=== PATIENT | female | born 1985 | race Caucasian/White ===

== ENCOUNTER → 2020-06-19 15:23 | Outpatient (BNVA) | payer MEDICAID, SELFPAY | PROVIDERS: Family Provider Family Medicine; PCP Nurse Practitioner Family; Visit Provider Internal Medicine Rheumatology | DX: L40.0 Psoriasis vulgaris (principal); R76.8 Other specified abnormal immunological findings in serum; M33.90 Dermatopolymyositis, unspecified, organ involvement unspecified; L40.50 Arthropathic psoriasis, unspecified; Z79.52 Long term (current) use of systemic steroids; Z79.899 Other long term (current) drug therapy | CPT/HCPCS: 80076; 82306; 82550; 82565; 85025; 85651; 86140; 86431; 86480; 86704; 86803; 87340; 99204 ==

== ENCOUNTER 2020-06-26 11:34 | Outpatient (CLI) | payer MEDICAID, SELFPAY ==
--- NOTE | 2020-06-26 11:40 | XR_ITS ---
WS: [id number] LEFT ELBOW: 2 VIEW(S) TECHNIQUE: AP and lateral. HISTORY: inflammatory arthritis COMPARISON: None available. No acute fractures or dislocation. No joint effusion. No soft tissue abnormality. XR/XR elbow LT 2V [id number] IMPRESSION: Normal LEFT elbow.
--- NOTE | 2020-06-26 11:40 | XR_ITS ---
WS: [id number] RIGHT FOOT: 3 VIEW(S) TECHNIQUE: AP, oblique and lateral. HISTORY: inflammatory arthritis COMPARISON: None available. No acute fracture or dislocation. Normal tarsal/metatarsal alignment. Numerous hammertoe deformities. There is marked flexion at the PI P joints of all digits. No soft tissue abnormality or bone destruction. No osteopenia. Small calcaneal spur. XR/XR foot RT min 3V* [id number] IMPRESSION: No inflammatory arthritic changes.
--- NOTE | 2020-06-26 11:40 | XR_ITS ---
WS: [id number] CHEST 2 VIEWS HISTORY: inflammatory arthritis COMPARISON: 03/21/2019 Lungs: Clear with no abnormality. No pleural effusion or pneumothorax. Cardiac size: Normal. Mediastinum/Aorta: Normal mediastinum. Bones: Normal. XR/XR chest 2V* [id number] IMPRESSION: Normal chest.
--- NOTE | 2020-06-26 11:40 | XR_ITS ---
WS: [id number] RIGHT ELBOW: 2 VIEW(S) TECHNIQUE: AP and lateral. HISTORY: inflammatory arthritis COMPARISON: None available. No acute fractures or dislocation. No joint effusion. No soft tissue abnormality. XR/XR elbow RT 2V [id number] IMPRESSION: Normal RIGHT elbow.
--- NOTE | 2020-06-26 11:40 | XR_ITS ---
WS: [id number] LEFT KNEE: 3 VIEW(S) TECHNIQUE: AP, oblique(s) and lateral. HISTORY: inflammatory arthritis COMPARISON: None available. No fracture or dislocation. No joint space narrowing or osteophytes. No joint effusion. No soft tissue abnormality. XR/XR knee LT 3V* [id number] IMPRESSION: Normal LEFT knee.
--- NOTE | 2020-06-26 11:40 | XR_ITS ---
WS: [id number] RIGHT KNEE: 3 VIEW(S) TECHNIQUE: AP, oblique(s) and lateral. HISTORY: inflammatory arthritis COMPARISON: None available. No fracture or dislocation. No joint space narrowing or osteophytes. No joint effusion. No soft tissue abnormality. XR/XR knee RT 3V* [id number] IMPRESSION: Normal RIGHT knee.
--- NOTE | 2020-06-26 11:40 | XR_ITS ---
WS: [id number] LEFT FOOT: 3 VIEW(S) TECHNIQUE: AP, oblique and lateral. HISTORY: inflammatory arthritis COMPARISON: None available. No acute fracture or dislocation. Normal tarsal/metatarsal alignment. Marked flexion involving the IP joints. Calcaneal spur. No soft tissue abnormality or bone destruction. XR/XR foot LT min 3V* [id number] IMPRESSION: Normal LEFT foot.
--- NOTE | 2020-06-26 11:40 | XR_ITS ---
WS: [id number] LEFT HAND: 3 VIEW(S) TECHNIQUE: PA, oblique and lateral. HISTORY: inflammatory arthritis COMPARISON: None available. No acute fracture or dislocation. No soft tissue or bone abnormality. Small chronic avulsion from the ulnar styloid. Mild narrowing of the distal radial ulnar joint. XR/XR hand LT min 3V* [id number] IMPRESSION: No erosions or inflammatory changes.
--- NOTE | 2020-06-26 11:40 | XR_ITS ---
WS: [id number] RIGHT HAND: 3 VIEW(S) TECHNIQUE: PA, oblique and lateral. HISTORY: inflammatory arthritis COMPARISON: None available. No acute fracture or dislocation. No soft tissue or bone abnormality. XR/XR hand RT min 3V* [id number] IMPRESSION: Normal RIGHT hand.
== END 2020-06-26 11:35 | disposition home or self-care (01) ==
LOC: RADWPI 11:39
PROVIDERS: PCP Nurse Practitioner Family; Visit Provider Internal Medicine Rheumatology
DX: M19.90 Unspecified osteoarthritis, unspecified site (principal)
CPT/HCPCS: 71046; 73070; 73130; 73562; 73630

== ENCOUNTER → 2020-07-26 10:59 | Outpatient (BNVA) | payer MEDICAID, SELFPAY | PROVIDERS: PCP Nurse Practitioner Family; Visit Provider Internal Medicine Rheumatology | DX: L40.0 Psoriasis vulgaris (principal); Z79.899 Other long term (current) drug therapy; L40.50 Arthropathic psoriasis, unspecified; M33.90 Dermatopolymyositis, unspecified, organ involvement unspecified; F17.210 Nicotine dependence, cigarettes, uncomplicated; Z79.52 Long term (current) use of systemic steroids | CPT/HCPCS: 99214 ==

== ENCOUNTER 2021-01-20 10:37 | Outpatient (CLI) | payer MEDICAID, SELFPAY ==
[2021-01-20 11:43] LABS: Magnesium 1.9 mg/dL (1.7-2.3)
[2021-01-20 12:19] LABS: Potassium 4.1 mmol/L (3.5-5.1)
== END 2021-01-20 10:38 | disposition home or self-care (01) ==
PROVIDERS: PCP Nurse Practitioner Family; Visit Provider Internal Medicine Rheumatology
DX: Z79.899 Other long term (current) drug therapy (principal); R25.2 Cramp and spasm
CPT/HCPCS: 36415; 83735; 84132

== ENCOUNTER 2021-05-31 07:56 | Emergency (ER) | payer MEDICAID, SELFPAY ==
--- NOTE | 2021-05-31 08:25 | ED_ITS ---
HPI - Abdominal Pain General: Stated Complaint: Abd pain Time Seen by Provider: 05/31/21 08:21 PFSH ED PFSH: Medical History (Updated 07/26/20 @ 12:32 by Stephan Gudino MD) Heliotrope rash of eyelid High risk medication use Immunization counseling Nephrolithiasis Plaque psoriasis Psoriatic arthritis Surgical History History of appendectomy History of tubal ligation Family History Other Heart disease Denies family history of Rheumatoid arthritis Diabetes Lupus Hypertension Social History (Updated 07/26/20 @ 11:27 by Mervat Zambrano LPN) Smoking and tobacco status: current every day smoker Alcohol intake: current Alcohol intake frequency: holidays/special occasions only History of recent travel: No Discharge Plan Discharge Prescriptions: No Action albuterol sulfate [Ventolin HFA] 90 mcg/actuation HFA aerosol inhaler 1 inh INHALATION QID RF: 0 albuterol sulfate 0.63 mg/3 mL solution for nebulization 0.63 mg INHALATION Q6H RF: 0 prednisone 10 mg tablet 10 mg PO DAILY Qty: 30 RF: 3 Taltz Autoinjector 80 mg/mL auto-injector See Rx Instructions SUBCUT .Q4 weeks Qty: 3 RF: 0 Taltz Autoinjector 80 mg/mL auto-injector 80 mg SUBCUT .Q4 weeks Qty: 1 RF: 2 ondansetron HCl 8 mg tablet 8 mg PO Q8H PRN (Reason: nausea and vomiting) Qty: 30 RF: 2 Coding Level of Care Code ED [employer] for [place]
[2021-05-31 08:30] VITALS: BP 146/102; PULSE 103; RESP 15; TEMP 37.1; O2SAT 97; BMI 37.0
--- NOTE | 2021-05-31 08:35 | PC.NURSE ---
patient expresses concern that she will be mixed up with another patient that was in the waiting room to be seen with the same name as Nicole. I educated the patient that we ask the name and of every patient every time to ensure that proper specimen labeling, charting, procedures and testing were on the right patient at the right time. pt verbalized understanding. Noted that the patient is agitated and arguing spouse at bedside.
[2021-05-31 08:36] VITALS: BP 146/102; PULSE 105; RESP 15; O2SAT 97
--- NOTE | 2021-05-31 08:38 | ED_ITS ---
HPI - Fever General: Chief Complaint: Fever Stated Complaint: Abd pain Time Seen by Provider: 05/31/21 08:21 Source: patient Mode of arrival: ambulatory Limitations: no limitations History of Present Illness: HPI Narrative: Patient reports fevers since May 24 after ventral hernia repair. Patient has had occasional cough. She states she had negative Covid screen yesterday. She denies any abdominal pain. She denies any dysuria. She has had a mild cough. She states she has reflux when she lays flat. She denies any flank pain. Denies any headache or neurological changes. She states she has a history of dermatomyositis, lupus, asthma. She does smoke cigarettes. MD elicited complaint: fever Onset (ago): day(s) (7) Context: recent procedure (Ventral hernia repair with mesh on 624 at [facility]) Exacerbating factors: nothing Relieving factors: nothing Associated symptoms: Reports cough; Deny abdominal pain, flank pain, chills, chest pain, diarrhea, dysuria, extremity pain, headache(s), nausea, rash, short of breath, sore throat or vomiting Treatments prior to arrival fever: none Review of Systems Const: Reports: fever(s); Denies: chills Eyes: Denies: change in vision ENMT: Denies: throat pain Card: Denies: chest pain or palpitations Resp: Reports: non-productive cough; Denies: dyspnea or wheezing GI: Denies: abdominal pain, nausea, vomiting or diarrhea : Denies: flank pain or dysuria Musc: Denies: neck pain, back pain or extremity pain Skin/Breast: Denies: rash or pruritus Neuro: Denies: headache(s) Psych: Denies: anxiety Herrera/Lymph: Denies: enlarged lymph nodes PFSH ED PFSH: Medical History Heliotrope rash of eyelid High risk medication use Immunization counseling Nephrolithiasis Plaque psoriasis Psoriatic arthritis Surgical History History of appendectomy History of tubal ligation Family History Other Heart disease Denies family history of Rheumatoid arthritis Diabetes Lupus Hypertension Social History Smoking and tobacco status: current every day smoker Alcohol intake: current Alcohol intake frequency: holidays/special occasions only History of recent travel: No Physical Exam Const: COMMON NORMALS: no acute distress, patient oriented x3, no limitations and well nourished GENERAL APPEARANCE: cooperative HENMT: COMMON NORMALS: normocephalic and atraumatic HEAD & SCALP: normocephalic and atraumatic FACE & SINUS: normal facial exam Eye: COMMON NORMALS: EOMs intact bilaterally Neck/C-Spine: COMMON NORMALS: full ROM, no lymphadenopathy, supple and no meningeal signs GENERAL: Yes normal visual inspection Lymph: LYMPHATIC: no lymphadenopathy noted Chest: COMMONS NORMALS: normal inspection of the chest and normal palpation of entire chest wall CHEST: No Ecchymosis present and No rash Resp: COMMON NORMALS: normal respiratory effort, No retractions and clear to auscultation bilaterally EFFORT & INSPECTION: No respiratory distress AUSCULTATION: clear to auscultation bilaterally Cardio: COMMON NORMALS: regular rate, regular rhythm and Peripheral pulses 2+ throughout JUGULAR VENOUS DISTENTION: no JVD RATE: regular rate RHYTHM: regular rhythm PERIPHERAL PULSES: Peripheral pulses 2+ throughout GI: COMMON NORMALS: Normal to inspection, nondistended, normoactive bowel s ounds present, Soft to palpation (Obese. Abdomen nontender.) and non-tender INSPECTION: Yes abdominal wall ecchymosis (Minimal ecchymosis to incisional redness to the left lat abd wall) and Yes incision (Wounds healing well) Inspection of incision: healing well PALPATION: Yes Soft to palpation (Obese. Abdomen nontender.) : COMMON NORMALS: Yes no CVA tenderness BLADDER/KIDNEY EXAM: Yes no CVA tenderness Back/Pelvis: COMMON NORMALS: no CVA tenderness Extremity: COMMON NORMALS: normal to inspection, full ROM and capillary refill normal Neuro: COMMON NORMALS: patient oriented x3, CN's II-XII intact bilaterally, no focal motor deficits and no sensory deficits noted MENINGEAL SIGNS: Yes no meningeal signs Psych: COMMON NORMALS: mental status grossly normal and Normal thought process present THOUGHT PROCESS: Normal thought process present Skin: COMMON NORMALS: no rashes or lesions noted and no wounds GENERAL SKIN EXAM: no rashes or lesions noted Course Vital Signs: Vital signs: Vital Signs Temperature 98.7 F 05/31/21 08:30 Pulse Rate 105 H 05/31/21 08:36 Respiratory Rate 15 05/31/21 08:36 Blood Pressure 146/102 05/31/21 08:36 Pulse Oximetry 97 05/31/21 08:36 MDM - Fever MDM Narrative: Medical decision making narrative: 0848: Nurse states that after she obtained the flu swab patient became irate with the nurse and cursed her and left AGAINST MEDICAL ADVICE. Reportedly only the flu swab and urinalysis was collected prior to patient leaving abruptly. Discharge Plan Discharge Patient Disposition: Left Against Medical Advice Prescriptions: No Action albuterol sulfate [Ventolin HFA] 90 mcg/actuation HFA aerosol inhaler 1 inh INHALATION QID RF: 0 albuterol sulfate 0.63 mg/3 mL solution for nebulization 0.63 mg INHALATION Q6H RF: 0 prednisone 10 mg tablet 10 mg PO DAILY Qty: 30 RF: 3 Taltz Autoinjector 80 mg/mL auto-injector See Rx Instructions SUBCUT .Q4 weeks Qty: 3 RF: 0 Taltz Autoinjector 80 mg/mL auto-injector 80 mg SUBCUT .Q4 weeks Qty: 1 RF: 2 ondansetron HCl 8 mg tablet 8 mg PO Q8H PRN (Reason: nausea and vomiting) Qty: 30 RF: 2 Discharge Orders: Discharge ED (Routine); Ordered 05/31/21 Ordered By: Mango Noble Referrals: Avril Aburto FNP [Primary Care Provider] - Coding Level of Care Code ED Operations Superintendent for [employer] Exam Comprehensive
--- NOTE | 2021-05-31 08:50 | PC.NURSE ---
pt provided urine specimen but is angry and making comments under her breath and expressing to that she wants to leave and spouse is verbally telling he no and to quit being mean to everyone. Swabbed patient for flu specimen after educating the patient on the process; pt states did we not do this yesterday; pt was seen at a clinic not at [facility] ED. I educated to patient that the physician wants to repeat some test that may have been performed yesterday to verify those results. After swabbing the patient she became more visibly upset stating that she was leaving or she would leave her ; educated patient that she had the right to leave AMA but I would need her to sign an AMA form. Pt called me a fucking bitch and refused to sign form and left the ED department.
== END 2021-05-31 08:50 | disposition left against medical advice (07) ==
PROVIDERS: Emergency Provider Family Medicine; PCP Nurse Practitioner Family
DX: Z53.21 Procedure and treatment not carried out due to patient leaving prior to being seen by health care provider (principal)
CPT/HCPCS: 99281

== ENCOUNTER → 2021-10-23 11:24 | Outpatient (BNVA) | payer MEDICAID, SELFPAY | PROVIDERS: PCP Nurse Practitioner Family; Visit Provider Internal Medicine Rheumatology | DX: L40.0 Psoriasis vulgaris (principal); L40.50 Arthropathic psoriasis, unspecified; Z79.899 Other long term (current) drug therapy; Z79.52 Long term (current) use of systemic steroids; M33.90 Dermatopolymyositis, unspecified, organ involvement unspecified; Z87.898 Personal history of other specified conditions; Z71.89 Other specified counseling; F17.200 Nicotine dependence, unspecified, uncomplicated | CPT/HCPCS: 99214 ==

== ENCOUNTER → 2022-09-24 09:45 | Outpatient (BNVA) | payer MEDICAID, SELFPAY | PROVIDERS: PCP Nurse Practitioner Family; Visit Provider Internal Medicine Rheumatology | DX: L40.0 Psoriasis vulgaris (principal); L40.50 Arthropathic psoriasis, unspecified; Z79.899 Other long term (current) drug therapy; Z71.89 Other specified counseling; Z87.442 Personal history of urinary calculi; H01.9 Unspecified inflammation of eyelid; Z79.52 Long term (current) use of systemic steroids; I51.89 Other ill-defined heart diseases; K21.9 Gastro-esophageal reflux disease without esophagitis | CPT/HCPCS: 99214 ==

== ENCOUNTER → 2022-10-07 13:36 | Outpatient (BNVA) | payer MEDICAID, SELFPAY | PROVIDERS: Visit Provider Internal Medicine Rheumatology | DX: L40.50 Arthropathic psoriasis, unspecified (principal); L40.0 Psoriasis vulgaris; Z79.899 Other long term (current) drug therapy; Z71.89 Other specified counseling; Z79.52 Long term (current) use of systemic steroids; Z87.442 Personal history of urinary calculi | CPT/HCPCS: 99214 ==

== ENCOUNTER 2022-10-11 17:12 | Outpatient (CLI) | payer MEDICAID, SELFPAY ==
[2022-10-11 17:43] LABS: Basophils # 0.1 10^3/uL (0.0-0.1); Basophils % 0.8 %; Eosinophils # 0.2 10^3/uL (0.0-0.8); Eosinophils % 1.5 %; Hematocrit 46.8 % (37.0-47.0); Hemoglobin 15.9 g/dL (11.5-15.3); Mean Corpuscular Hemoglobin 28.6 pg (28.0-34.0); Mean Corpuscular Volume 84.2 fl (81-99); Mean Platelet Volume 10.3 fL (7.4-10.4); Monocytes # 0.7 10^3/uL (0.2-0.9); Monocytes % 6.6 %; Neutrophils % 61.6 %; Nucleated Red Blood Cells % 0 %; Platelet Count 429 10^3/cmm (130-400); Red Blood Count 5.56 10^6/uL (4.1-5.3); Red Cell Distribution Width 12.9 % (12.1-15.1); White Blood Count 10.4 10^3/uL (4.0-10.0)
[2022-10-11 18:06] LABS: Alanine Aminotransferase 14 U/L (0-33); Albumin Level 4.2 g/dL (3.5-5.2); Alkaline Phosphatase 67 U/L (35-105); Aspartate Amino Transferase 15 U/L (0-32); C Reactive Protein 15.8 mg/L (0.0-4.9); Globulin 3.5 g/dL (1.3-4.6); Glomerular Filtration Rate 93.6 mL/min (90-130); Total Bilirubin 0.2 mg/dL (0.15-1.2); Total Protein 7.7 g/dL (6.6-8.7)
[2022-10-17 17:53] LABS: Myositis EJ AB <11 SI (<11); Myositis JO-1 AB <11 SI (<11); Myositis MDA-5 AB <11 SI (<11); Myositis MI-2 Alpha AB <11 SI (<11); Myositis MI-2 Beta AB <11 SI (<11); Myositis NXP-2AB <11 SI (<11); Myositis OJ AB <11 SI (<11); Myositis PL-12 AB <11 SI (<11); Myositis PL-7 AB <11 SI (<11); Myositis SRP AB <11 SI (<11); Myositis TIF-1y AB <11 SI (<11)
== END 2022-10-11 17:13 | disposition home or self-care (01) ==
LOC: LAB 17:21
PROVIDERS: Visit Provider Internal Medicine Rheumatology
DX: L40.50 Arthropathic psoriasis, unspecified (principal); Z79.899 Other long term (current) drug therapy; L40.0 Psoriasis vulgaris
CPT/HCPCS: 36415; 80076; 82565; 84182; 85025; 86140; 86235

== ENCOUNTER → 2023-01-16 11:54 | Outpatient (BNVA) | payer MEDICAID, SELFPAY | PROVIDERS: Visit Provider Internal Medicine Rheumatology | DX: Z79.899 Other long term (current) drug therapy (principal); L40.50 Arthropathic psoriasis, unspecified; L40.0 Psoriasis vulgaris; M33.90 Dermatopolymyositis, unspecified, organ involvement unspecified; Z71.89 Other specified counseling | CPT/HCPCS: 80076; 82565; 85025; 86036 ==

== ENCOUNTER → 2023-02-06 10:51 | Outpatient (BNVA) | payer MEDICAID, SELFPAY | PROVIDERS: Visit Provider Dermatology | DX: L40.0 Psoriasis vulgaris (principal) | CPT/HCPCS: 80053; 85025; 86480; 86705; 86706; 86709; 86803; 87340; 87806 ==

== ENCOUNTER 2023-02-13 14:21 | Outpatient (CLI) | payer MEDICAID, SELFPAY ==
[2023-02-13 15:47] LABS: Alanine Aminotransferase 19 U/L (0-33); Albumin Level 3.8 g/dL (3.5-5.2); Alkaline Phosphatase 51 U/L (35-105); Anion Gap 13.4 (5-19); Aspartate Amino Transferase 12 U/L (0-32); Blood Urea Nitrogen 12 mg/dL (6-20); Calcium 9.2 mg/dL (8.5-10.5); Carbon Dioxide 26 mmol/L (22-29); Chloride 102 mmol/L (98-107); Glomerular Filtration Rate 93.2 mL/min (90-130); Glucose 94 mg/dL (65-115); Osmolality Calculated 286 mOsm/kg (285-295); Potassium 3.4 mmol/L (3.5-5.1); Sodium 138 mmol/L (136-145); Total Bilirubin 0.2 mg/dL (0.15-1.2); Total Protein 6.8 g/dL (6.6-8.7)
[2023-02-13 16:06] LABS: Hepatitis A Antibody IgM Non-Reactive (Nonreactive); Hepatitis B Core AB, Total Non-Reactive (Nonreactive); Hepatitis B Surface AB 3.5 (11.5-1000); Hepatitis B Surface Antigen Non-Reactive (Nonreactive); Hepatitis C Virus Antibody Non-Reactive (Nonreactive)
[2023-02-13 16:26] LABS: HIV 1 & 2 Antibody Non-Reactive (Non-Reactiv); HIV 1 & 2 Antigen Non-Reactive (Non-Reactiv)
[2023-02-15 14:20] LABS: Quantiferon Mitogen >10.00 IU/mL; Quantiferon Nil 0.02 IU/mL; Quantiferon TB Gold NEGATIVE (NEGATIVE)
== END 2023-02-13 14:22 | disposition home or self-care (01) ==
LOC: LAB 14:25
PROVIDERS: Visit Provider Nurse Practitioner Family
DX: L40.0 Psoriasis vulgaris (principal)
CPT/HCPCS: 36415; 80053; 86480; 86705; 86706; 86709; 86803; 87340; 87806

== ENCOUNTER 2024-09-21 10:09 | Outpatient (CLI) | payer MEDICAID, SELFPAY ==
[2024-09-21 10:29] LABS: Basophils % 0.4 %; Eosinophils # 0.2 10^3/uL (0.0-0.8); Eosinophils % 1.5 %; Hematocrit 42.5 % (36-47); Lymphocytes # 2.2 10^3/uL (0.8-4.8); Lymphocytes % 20.8 %; Mean Corpuscular HGB Conc 33.4 g/dL (30-55); Mean Corpuscular Volume 83.8 fl (85-98); Mean Platelet Volume 10.6 fL (7.4-10.4); Monocytes # 0.5 10^3/uL (0.2-0.9); Monocytes % 4.7 %; Neutrophils % 72.3 %; Nucleated Red Blood Cells % 0 %; Platelet Count 383 10^3/cmm (157-399); Red Blood Count 5.07 10^6/uL (3.85-5.65); Red Cell Distribution Width 13.2 % (12.1-15.1)
[2024-09-21 10:31] LABS: Erythrocyte Sedimentation Rate 18 mm/hr (0-15)
[2024-09-21 10:49] LABS: Alanine Aminotransferase 11 U/L (0-33); Albumin Level 4.1 g/dL (3.5-5.2); Alkaline Phosphatase 54 U/L (35-105); Aspartate Amino Transferase 14 U/L (0-32); C Reactive Protein 9.7 mg/L (0.0-4.9); Globulin 2.9 g/dL (1.3-4.6); Glomerular Filtration Rate 92.7 mL/min (90-130); Total Bilirubin 0.2 mg/dL (0.15-1.2)
[2024-09-21 11:17] LABS: Hepatitis B Core AB, Total Non-Reactive (Nonreactive); Hepatitis B Surface Antigen Non-Reactive (Nonreactive); Hepatitis C Virus Antibody Non-Reactive (Nonreactive)
[2024-09-24 15:58] LABS: Quantiferon Mitogen 7.78 IU/mL; Quantiferon Nil 0.03 IU/mL; Quantiferon Plus TB1 0.01 IU/mL; Quantiferon Plus TB2 0.01 IU/mL; Quantiferon TB Gold NEGATIVE (NEGATIVE)
== END 2024-09-21 10:10 | disposition home or self-care (01) ==
LOC: LAB 10:10
PROVIDERS: Visit Provider Internal Medicine Rheumatology
DX: L40.50 Arthropathic psoriasis, unspecified (principal); L40.0 Psoriasis vulgaris; Z79.899 Other long term (current) drug therapy; Z71.89 Other specified counseling
CPT/HCPCS: 36415; 80076; 82565; 85025; 85651; 86140; 86480; 86704; 86803; 87340

== ENCOUNTER → 2024-09-29 14:00 | Outpatient (BNVA) | payer MEDICAID, SELFPAY | PROVIDERS: Visit Provider Internal Medicine Rheumatology | DX: L40.0 Psoriasis vulgaris (principal); L40.50 Arthropathic psoriasis, unspecified; M33.90 Dermatopolymyositis, unspecified, organ involvement unspecified; Z79.899 Other long term (current) drug therapy; Z71.89 Other specified counseling | CPT/HCPCS: 99214; 99215 ==

== ENCOUNTER → 2025-02-02 13:35 | Outpatient (BNVA) | payer MEDICAID, SELFPAY | PROVIDERS: Visit Provider Internal Medicine Rheumatology | DX: L40.50 Arthropathic psoriasis, unspecified (principal); M33.90 Dermatopolymyositis, unspecified, organ involvement unspecified; L40.0 Psoriasis vulgaris; Z71.89 Other specified counseling | CPT/HCPCS: 99214 ==

== ENCOUNTER → 2025-06-01 12:58 | Outpatient (BNVA) | payer MEDICAID, SELFPAY | PROVIDERS: Visit Provider Internal Medicine Rheumatology | DX: L40.50 Arthropathic psoriasis, unspecified (principal); M33.90 Dermatopolymyositis, unspecified, organ involvement unspecified; L40.0 Psoriasis vulgaris; Z71.89 Other specified counseling; Z79.899 Other long term (current) drug therapy | CPT/HCPCS: 99214 ==

== ENCOUNTER 2025-09-15 09:31 | Emergency (ER) | payer MEDICAID, SELFPAY ==
[2025-09-15] MEDS: ondansetron 2 mg/ML SDV 2 mL 4 MG IVP (09:48)
[2025-09-15] MEDS: morphine 4 mg/mL SDV 1 mL IVP (09:49)
[2025-09-15 09:50] LABS: Hematocrit 48.6 % (36-47); Hemoglobin 16.70 g/dL (11.27-16.99); Mean Corpuscular HGB Conc 34.4 g/dL (30-55); Mean Corpuscular Hemoglobin 27.9 pg (27-33); Mean Corpuscular Volume 81.3 fl (85-98); Nucleated Red Blood Cells % 0 %; Platelet Count 398 10^3/cmm (157-399); Red Blood Count 5.98 10^6/uL (3.85-5.65); White Blood Count 15.26 10^3/uL (3.29-11.43)
[2025-09-15 09:51] VITALS: PULSE 107; RESP 35; O2SAT 98; BMI 42.0
--- NOTE | 2025-09-15 09:56 | ED_ITS ---
HPI - Abdominal Pain 2 General: Chief Complaint: Abdominal Pain Stated Complaint: Upper ABD Pain Time Seen by Provider: 09/15/25 09:42 History of Present Illness: 39-year-old female presents emergency ro om epigastric right upper quadrant abdominal pain has been going on for the last week worse when she eats and improves when she lays on her left side. She previously had an appendectomy she has her gallbladder intact yet. She has had vomiting with this she denies any diaphoresis. Patient extremely anxious on arrival nurse was able to successfully de-escalate her. She denies any hematemesis coffee-ground emesis or melena. No dysuria urgency or frequency or hematuria. Associated Symptoms: Denies chills, dysuria and fever(s) Related Data Home Medications ?Medication ?Instructions ?Recorded ?Confirmed albuterol sulfate 0.63 mg/3 mL 0.63 mg inhalation Q6H 07/26/20 06/01/25 solution for nebulization albuterol sulfate 90 mcg/actuation 1 inh inhalation QI D 07/26/20 06/01/25 aerosol inhaler (Ventolin HFA) ketorolac 10 mg tablet mg PO Q6H 02/02/25 06/01/25 Previous Rx's ?Medication ?Instructions ?Recorded amlodipine 10 mg tablet 10 mg PO DAILY #30 tabs 09/02 ondansetron HCl 8 mg tablet See Rx Instructions .Route 04/21/25 .COMPLEX #30 tabs guselkumab 100 mg/mL subcutaneous 100 mg SUBCUT .Q8wee ks #1 mL 05/05/25 auto-injector (Tremfya) guselkumab 100 mg/mL subcutaneous See Rx Instructions SUBCUT 05/05/25 auto-injector (Tremfya) .COMPLEX #2 mL prednisone 5 mg tablet See Rx Instructions PO .COMP HUSSEIN 06/01/25 #60 tabs amoxicillin 500 mg-potassium 1 tab PO TID #21 tabs clavulanate 125 mg tablet (Augmentin) promethazine 25 mg tablet 25 mg PO Q6H PRN nausea and 09/15/25 vomiting #20 tabs Allergies Allergy/AdvReac Type Severity Reaction Status Date / Time methotrexate AdvReac Severe Nausea Verified 02/02/25 13:53 vomiting dehydrated and in hospital adalimumab (From Humira) AdvReac ADR-Nausea Verified 04/21/25 18:16 Review of Systems 2 Const: Denies: fever(s) or chills Card: Denies: chest pain Resp: Denies: dyspnea GI: Denies: abdominal pain : Denies: dysuria, urinary frequency or urinary urgency Musc: Denies: neck pain or back pain Skin/Breast: Denies: rash PFSH ED 2 PFSH: Medical History Nephrolithiasis Immunization counseling High risk medication use Heliotrope rash of eyelid improved on prednisone Psoriatic arthritis Plaque psoriasis Surgical History Hx of lithotripsy History of appendectomy History of tubal ligation Family History Other Heart disease Denies family history of Rheumatoid arthritis Diabetes Lupus Hypertension Social History Smoking and tobacco/nicotine status: current every day tobacco/nicotine user cigarettes Packs smoked per day: 0.75 Alcohol intake: current Alcohol intake frequency: holidays/special occasions only Physical Exam 2 Const: GENERAL APPEARANCE: cooperative ORIENTATION/CONSCIOUSNESS: Yes awake, Yes oriented to person, Yes oriented to place and Yes oriented to time HENMT: COMMON NORMALS: normocephalic, atraumatic and hearing grossly normal bilaterally HEAD & SCALP: normocephalic and atraumatic Resp: COMMON NORMALS: normal respiratory effort, No retractions, No use of accessory muscles and clear to auscultation bilaterally AUSCULTATION: clear to auscultation bilaterally Cardio: COMMON NORMALS: regular rate, regular rhythm and No murmurs present (Cardio) RATE: regular rate RHYTHM: regular rhythm GI: COMMON NORMALS: Soft to palpation and No hepatosplenomegaly present A USCULTATION: Yes normoactive bowel sounds PALPATION: Yes Soft to palpation, No Tenderness to palpation present (GI), No Guarding due to palpation present (GI) and Yes No hepatosplenomegaly present Extremity: COMMON NORMALS: normal to inspection, capillary refill normal, no clubbing, cyanosis or edema, no calf tenderness and no pedal edema Neuro: SENSORIUM/ORIENTATION: Yes oriented to person, Yes oriented to place and Yes oriented to time Skin: COMMON NORMALS: no rashes or lesions noted GENERAL SKIN EXAM: no rashes or lesions noted Course 2 Vital Signs: Vital signs: Vital Signs Temperature 98.8 F 09/15/25 11:27 Pulse Rate 78 09/15/25 14:07 Respiratory Rate 35 H 09/15/25 09:51 Blood Pressure 108/78 09/15/25 14:07 Pulse Oximetry 98 09/15/25 14:07 Oxygen Delivery Me thod Room Air 09/15/25 09:51 MDM - Abdominal Pain Medical Decision Making Patient has ileitis will start on Augmentin. Clear liquid diet for the next 3 to 4 days and then return advance as tolerated. Will start on antiemetics gave pain medications discharge her home she needs to follow-up with her primary care doctor for repeat evaluation possible CT and further evaluation patient states she is feeling somewhat better after IV fluids. Patient anxious to discharge. Return if she has further problems or pain is not controlled Lab Data 09/15/25 09:36 09/15/25 09:36 Labs/Radiology: Radiology Impressions Abdomen/Pelvis CT 09/15/25 11:30 IMPRESSION: 1. Acute terminal ileitis. There is significant inflammation surrounding the terminal ileum with extension to the cecum. Associated hyperemic lymphadenopathy. Consider inflammatory bowel disease such as Crohn's or ulcerative colitis, infectious etiologies or noninfectious etiologies such as medication related (NSAIDs) or autoimmune disorder. 2. Prior appendectomy. 3. No renal obstruction. 4. Hepatic steatosis. 5. Additional distal colon diverticulosis without acute diverticulitis. Gallbladder Ultrasound 09/15/25 11:30 IMPRESSION: 1. Cholelithiasis. Numerous stones in the gallbladder but no evidence for acute cholecystitis at this time. 2. Completely obscured pancreas. 3. Normal size common bile duct. Laboratory Results WBC 15.26 10^3/uL (3.29-11.43) H 09/15/25 09:36 RBC 5.98 10^6/uL (3.85-5.65) H 09/15/25 09:36 Hgb 16.70 g/dL (11.27-16.99) 09/15/25 09:36 Hct 48.6 % (36-47) H 09/15/25 09:36 MCV 81.3 fl (85-98) L 09/15/25 09:36 MCH 27.9 pg (27-33) 09/15/25 09:36 MCHC 34.4 g/dL (30-55) 09/15/25 09:36 RDW 12.8 % (12.1-15.1) 09/15/25 09:36 Plt Count 398 10^3/cmm (157-399) 09/15/25 09:36 MPV 10.1 fL (7.4-10.4) 09/15/25 09:36 Neut % (Auto) 70.1 % 09/15/25 09:36 Lymph % (Auto) 20.1 % 09/15/25 09:36 [place]leigh % (Auto) 6.7 % 09/15/25 09:36 Eos % (Auto) 1.8 % 09/15/25 09:36 Baso % (Auto) 0.6 % 09/15/25 09:36 Neut # (Auto) 10.71 10^3/uL (1.8-7.7) H 09/15/25 09:36 Lymph # (Auto) 3.1 10^3/uL (0.8-4.8) 09/15/25 09:36 [place] # (Auto) 1.0 10^3/uL (0.2-0.9) H 09/15/25 09:36 Eos # (Auto) 0.3 10^3/uL (0.0-0.8) 09/15/25 09:36 Baso # (Auto) 0.1 10^3/uL (0.0-0.1) 09/15/25 09:36 Nucleated RBC % (auto) 0 % 09/15/25 09:36 Nucleated RBCs # 0.0 /100WBC 09/15/25 09:36 Sodium 139 mmol/L (136-145) 09/15/25 09:36 Potassium 4.1 mmol/L (3.5-5.1) 09/15/25 09:36 Chloride 100 mmol/L (98-107) 09/15/25 09:36 Carbon Dioxide 25 mmol/L (22-29) 09/15/25 09:36 Anion Gap 18.1 (5-19) 09/15/25 09:36 BUN 7 mg/dL (6-20) 09/15/25 09:36 Creatinine 0.7 mg/dL (0.5-0.9) 09/15/25 09:36 GFR Calculation 92.2 mL/min (90-130) 09/15/25 09:36 Glucose 103 mg/dL (65-115) 09/15/25 09:36 Calculated Osmolality 286 mOsm/kg (285-295) 09/15/25 09:36 Calcium 9.9 mg/dL (8.5-10.5) 09/15/25 09:36 Total Bilirubin 0.4 mg/dL (0.15-1.2) 09/15/25 09:36 AST 21 U/L (0-32) 09/15/25 09:36 ALT 18 U/L (0-33) 09/15/25 09:36 Alkaline Phosphatase 82 U/L (35-105) 09/15/25 09:36 Total Protein 7.7 g/dL (6.6-8.7) 09/15/25 09:36 Albumin 4.3 g/dL (3.5-5.2) 09/15/25 09:36 Globulin 3.4 g/dL (1.3-4.6) 09/15/25 09:36 Lipase 14 U/L (13-60) 09/15/25 09:36 Urine Color Dark yellow (Yellow) A 09/15/25:36 Urine Appearance Cloudy (CLEAR) A 09/15/25 09:36 Urine pH 6.5 (5-7) 09/15/25 09:36 Ur Specific [place] 1.021 (1.005-1.030) 09/15/25 09:36 Urine Protein 1+ (Negative) A 09/15/25 09:36 Urine Glucose (UA) Negative (Normal) 09/15/25 09:36 Urine Ketones Trace (Negative) 09/15/25 09:36 Urine Blood Negative (Negative) 09/15/25 09:36 Urine Nitrate Negative (Negative) 09/15/25 09:36 Urine Bilirubin Negative (Negative) 09/15/25 09:36 Urine Urobilinogen 1.0 mg/dL (Negative) 09/15/25 09:36 Ur Leukocyte Esterase 1+ (Negative) A 09/15/25:36 Urine RBC 0-2 /hpf (0-2) 09/15/25 09:36 Urine WBC 11-20 /hpf (0-5) H 09/15/25 09:36 Ur Squamous Epith Cells 21-50 /hpf (0-5) H 09/15/25 09:36 Amorphous Sediment Not Reportable 09/15/25 09:36 Urine Bacteria 3+ /hpf (NONE) H 09/15/25 09:36 Hyaline Casts 4.95 /lpf 09/15/25 09:36 All radiology interpretation(s) finalized by discharge Discharge Plan Discharge Patient Disposition: Home Clinical Impression: Cholelithiasis, Terminal ileitis Condition: Stable Prescriptions: New amoxicillin-pot clavulanate [Augmentin] 500-125 mg tablet 1 tab PO TID Qty: 21 0RF promethazine 25 mg tablet 25 mg PO Q6H PRN (Reason: nausea and vomiting) Qty: 20 0RF No Action albuterol sulfate [Ventolin HFA] 90 mcg/actuation HFA aerosol inhaler 1 inh INHALATION QID albuterol sulfate 0.63 mg/3 mL solution for nebulization 0.63 mg INHALATION Q6H prednisone 5 mg tablet See Rx Instructions PO .COMPLEX Qty: 60 5RF Rx Instructions: takes 10mg daily and will let us know when better then will resume 5mg daily orally; amlodipine 10 mg tablet 10 mg PO DAILY Qty: 30 3RF ketorolac 10 mg tablet PO Q6H ondansetron HCl 8 mg tablet See Rx Instructions .ROUTE .COMPLEX Qty: 30 1RF Dose Instruction: TAKE 1 TABLET BY MOUTH EVERY 8 HOURS NEEDED FOR NAUSEA AND VOMITING Rx Instructions: TAKE 1 TABLET BY MOUTH EVERY 8 HOURS NEEDED FOR NAUSEA AND VOMITING Tremfya 100 mg/mL auto-injector See Rx Instructions SUBCUT .COMPLEX Qty: 2 0RF Rx Instructions: loading dose....100mg SQ inj at week 0 and at week 4 then inj every 8 weeks thereafter SUBCUT; Tremfya 100 mg/mL auto-injector 100 mg SUBCUT .Q2vcpfc Qty: 1 1RF Discharge Orders: Discharge ED (Routine); Ordered 09/15/25 Ordered By: Luis Carlos Contreras Discharge Diet: As Directed Discharge Activity: Increase activity as tolerated Patient Instructions: Biliary Colic (ED), Gallstones (ED), Diet for Stomach Ulcers and Gastritis (ED), Opioid Safety, Pain Management, Patient Portal & Loree Instructions Activity Restrictions/Additional Instructions: Thank you for choosing [facility] for your healthcare needs today. It is very important that you follow up as instructed or that you return to the Emergency Department should you have concerns or if your condition changes or worsens in any way. Emergency department visits are focused on emergent conditions, in some cases you may require further evaluation on an outpatient basis. You were seen in the emergency room with complaints of abdominal pain. Evaluation shows you have an ileitis (inflammation of part of the small bowel). He also have cholelithiasis. Cholelithiasis is causing some biliary colic which is what causes the right upper quadrant and epigastric abdominal pain. Will discharge you home on oral antibiotics Augmentin 1 tablet 3 times a day for 7 days. Will also check for follow-up patient with the general surgery clinic they can evaluate you for whether or not you will need to have your gallbladder out. They can also follow-up eyes any inflammation in your small bowel. If you have worsening symptoms return to the emergency room. Follow the diet recommendations as given at the time of discharge. (Please note that included in your discharge packet is information concerning opioid safety and pain management. This information is given to all patients were discharged from the ER regardless of their discharge diagnosis or the medicines they usually take or are prescribed.) Print Language: Kosovan Coding Level of Care Code ED Small Business Representative for Rusty Kessler
[2025-09-15 10:04] LABS: Glucose Urine UA Negative (Normal); Nitrate Urine Negative (Negative); Specific Gravity, Urine 1.021 (1.005-1.030)
[2025-09-15 10:07] LABS: Add Urine Microscopic? YES; Universal Test for UA Present (0)
--- OUTSIDE RECORDS SUMMARY | 2025-09-15 10:07 | XMS_ITS | Encounter Summary ---
Author Organization [facility] Address [address] [place] [address] Care Team Providers Care Gun Barrel Finisher Name Role Phone Nona Davis MD Primary Care Provider [phone] Encounter Details Date Type Department Care Team (Latest Contact Info) Description 04/17/2000 Outpatient Historical [facility] Family Medicine [place] [address] [facility] [address] [place] [address] Clementine Hood NO ADDRESS ON FILE Health examination of defined subpopulation (Primary Dx) Social History Tobacco Use Types Packs/Day Years Used Date Smoking Tobacco: Never Assessed Comments Unknown Sex and Gender Information Value Date Recorded Sex Assigned at Not on file Legal Sex Female 5:20 AM 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
--- OUTSIDE RECORDS SUMMARY | 2025-09-15 10:07 | XMS_ITS | Encounter Summary ---
Author Organization [id number] Address [address] [place] [address] Care Team Providers Care Trauma Counsellor Name Role Phone John West MD Primary Care Provider [phone] Encounter Details Date Type Department Care Team (Late st Contact Info) Description 06/01/2022 Lab Requisition [facility] Laboratory Services [address] [place] [address] Shaunna Rodrigues, TELEMETRY RN [address] [place] [address] Social History Tobacco Use Types Packs/Day Years Used Date Smoking Tobacco: Some Days Cigarettes Smokeless Tobacco: Never Alcohol Use Standard Drinks/Week Comments No 0 (1 standard drink = 0.6 oz pur e alcohol) Comments No Sex and Gender Information Value Date Recorded Sex Assigned at Not on file Legal Sex Female 3:17 AM HAIRSPRING VIBRATOR Gender Identity Not on file Sexual Orientation Not on file COVID-19 Exposure Response Date Recorded In the last 10 days, have yo u been in contact with someone who was confirmed or suspected to have Coronavirus/COVID-19? No / Unsure 06/01/2022 11:35 AM CDT documented as of this encounter Plan of Treatment Not on file documented as of this encounter Procedures Procedure Name Priority Date/Time Associated Diagnosis Comments CBC WITH DIFFERENTIAL Stat 06/01/2022 12:30 PM CDT C-REACTIVE PROTEIN Stat 06/01/2022 12 :30 PM CDT COMPREHENSIVE METABOLIC PANEL Stat 06/01/2022 12:30 PM CDT documented in this encounter Results * (ABNORMAL) CBC WITH DIFFERENTIAL (06/01/2022 12:30 PM CDT) WBC 9.7 4.5 - 11.0 K/uL 06/01/2022 1:12 PM CDT [facility] RBC 5.63(H) 4.20 - 5.40 M/uL 06/01/2022 1:12 PM [facility] HEMOGLOBIN 15.9 12.0 - 16.0 g/dL 06/01/2022 1:12 PM [facility] HEMATOCRIT 47.6(H) 36.0 - 46.0 % 06/01/2022 1:12 PM [facility] MCV 84.5 84.0 - 103.0 fL 06/01/2022 1:12 PM [facility] MCH 28.2 27.0 - 34.0 pg 06/01/2022 1:12 PM [facility] MCHC 33.4 30.0 - 35.0 g/dL 06/01/2022 1:12 PM [facility] RDW 13.0 11.0 - 14.5 % 06/01/2022 1:12 PM [facility] RDW-STDEV 39.8 37.0 - 54.0 fL 06/01/2022 1:12 PM [facility] PLATELETS 365 140 - 440 K/uL 06/01/2022 1:12 PM [facility] MPV 10.7 8.9 - 12.8 fL 06/01/2022 1:12 PM [facility] NEUTROPHILS 73 42 - 75 % 06/01/2022 1:12 PM [facility] LYMPHOCYTES 19(L) 24 - 44 % 06/01/2022 1:12 PM [facility] MONOCYTES 5 2 - 10 % 06/01/2022 1:12 PM CDT [facility] EOSINOPHILS 2 0 - 7 % 06/01/2022 1:12 PM CDT [facility] BASOPHILS 1 0 - 1 % 06/01/2022 1:12 PM CDT [facility] IMMATURE GRANULOCYTES 1 0 - 2 % 06/01/2022 1:12 PM CDT [facility] NEUTROPHIL ABSOLUTE 7.05 2.00 - 8.00 K/uL 06/01/2022 1:12 PM CDT [facility] LYMPHOCYTE ABSOLUTE 1.84 1.20 - 4.00 K/uL 06/01/2022 1:12 PM CDT [facility] MONOCYTE ABSOLUTE 0.52 0.10 - 0.60 K/uL 06/01/2022 1:12 PM CDT [facility] EOSINOPHIL ABSOLUTE 0.17 0.00 - 0.70 K/uL 06/01/2022 1:12 PM CDT [facility] BASOPHILS ABSOLUTE 0.06 0.00 - 0.20 K/uL 06/01/2022 1:12 PM CDT [facility] IMMATURE GRANULOCYTES ABSOLUTE 0.05 0.00 - 0.10 K/uL 06/01/2022 1:12 PM CDT [facility] Blood Collection / Unknown 06/01/2022 12:30 PM CDT 06/01/2022 1:05 PM CDT Shaunna WEBB HEMATOLOGY ORDERABLES Final Result [facility] CLIA # [id number] [facility] [address] [place], [place] [address] * (ABNORMAL) COMPREHENSIVE METABOLIC PANEL (06/01/2022 12:30 PM CDT) Pathologist [facility] SODIUM 138 136 - 145 mmol/L 06/01/2022 1:39 PM CDT [facility] POTASSIUM 3.5 3.5 - 5.1 mmol/L 06/01/2022 1:39 PM [facility] CHLORIDE 100 98 - 107 mmol/L 06/01/2022 1:39 PM [facility] CO2 26 22 - 29 mmol/L 06/01/2022 1:39 PM [facility] CALCIUM 9.2 8.6 - 10.0 mg/dL 06/01/2022 1:39 PM [facility] BUN 9 6 - 20 mg/dL 06/01/2022 1:39 PM [facility] CREATININE 0.76 0.51 - 0.95 mg/dL 06/01/2022 1:39 PM [facility] GLUCOSE 136(H) 74 - 99 mg/dL 06/01/2022 1:39 PM [facility] TOTAL PROTEIN 7.4 6.4 - 8.3 g/dL 06/01/2022 1:39 PM [facility] ALBUMIN 4.4 3.5 - 5.2 g/dL 06/01/2022 1:39 PM [facility] BILIRUBIN TOTAL 0.4 0.2 - 1.0 mg/dL 06/01/2022 1:39 PM [facility] ALKALINE PHOSPHATASE 70 35 - 104 U/L 06/01/2022 1:39 PM [facility] AST 17 10 - 35 U/L 06/01/2022 1:39 PM [facility] ALT 19 <=35 U/L 06/01/2022 1:39 PM [facility] GFR >60 >=60 mL/min/1.7 3 sq meter 06/01/2022 1:39 PM [facility] Comment:eGFR calculated with 2020 CKD-EPI equation. Vegetarian diet, extremely high or low muscle mass, and may affect results. Cystatin C with Glomerular Filtration Rate is a suitable alternative for these patients. ANION GAP 12 9 - 20 mmol/L 06/01/2022 1:39 PM [facility] Blood Collection / Unknown 06/01/2022 12:30 PM CDT 06/01/2022 1:04 PM CDT Shaunna MARREROP CHEMISTRY ORDERABLES Final Result Performing Organization Address [facility] de Phone Number [facility] CLIA # [id number] [address] [address] * (ABNORMAL) C-REACTIVE PROTEIN (06/01/2022 12:30 PM CDT) CRP 14.4(H) 0.0 - 5.0 mg/L 06/01/2022 1:39 PM CDT [facility] Blood Collection / Unknown 06/01/2022 12:30 PM CDT 06/01/2022 1:04 PM CDT Shaunna MARREROP CHEMISTRY ORDERABLES Final Result Performing Organization Address [facility] de Phone Number [facility] CLIA # [id number] [address] [address] documented in this encounter Visit Diagnoses Not on filedocumented in this encounter Care Teams Trauma Counsellor Relationship Specialty Start Date End Date John West MD [address] [place] [phone] PCP - General Family Practice 12/13/22 documented as of this encounter
--- OUTSIDE RECORDS SUMMARY | 2025-09-15 10:07 | XMS_ITS | Encounter Summary ---
Author Organization [facility] Address [address] [place] [address] Care Team Providers Care Press Tender Star Signal Name Role Phone Nona Davis MD Primary Care Provider Encounter Details Date Type Department Care Team (Latest Contact Info) Description 06/29/2002 Outpatient Historical [facility] Family Medicine [place] [address] [facility] [address] [place] [address] Manuelito Williamson DO NO ADDRESS ON FILE NONINFLAM DIS VAGINA NEC (Primary Dx) Social History Tobacco Use Types Packs/Day Years Used Date Smoking Tobacco: Never Assessed Comments Unknown Sex and Gender Information Value Date Recorded Sex Assigned at Not on file Legal Sex Female 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
--- OUTSIDE RECORDS SUMMARY | 2025-09-15 10:07 | XMS_ITS | Encounter Summary ---
Author Organization [facility] Address [address] [place] [address] Care Team Providers Care Reactor Fueling Supervisor Name Role Phone Nona Davis MD Primary Care Provider [phone] Reason for Visit * Reason Onset Date Comments patient called in 05/21/2021 Patient called earlier today to ask if this location is drive-up for her covid swab. Informed her it is. Patient called around Encounter Details Date Type Department Care Team (Late st Contact Info) Description 05/21/2021 Telephone [facility] - Orthopedic [facility] [address] [place] [address] Jg Negron MD [address] [place] [address] patient called in (Patient called earlier today to ask if this location is drive-up for her covid swab. Informed her it is. 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 No / Unsure 05/22/2021 1:35 PM CDT documented as of this encounter Miscellaneous Notes * Telephone Encounter - Faudree, Lalania - 05/21/2021 9:53 AM CDT Patient called earlier today to ask if this location is drive-up for her covid swab. Informed her it is. Patient called around 9:20am. documented in this encounter Plan of Treatment Not on file documented as of this encounter Visit Diagnoses Not on filedocumented in this encounter Care Teams Reactor Fueling Supervisor Relationship Specialty Start Date End Date Nona Davis MD [address] [place] [address] PCP - General Family Practice 02/20/21 documented as of this encounter
--- OUTSIDE RECORDS SUMMARY | 2025-09-15 10:07 | XMS_ITS | Encounter Summary ---
Author Organization [facility] Address [address] [place] [address] Care Team Providers Care Steel Erecting Pusher Name Role Phone Nona Davis MD Primary Care Provider [phone] Encounter Details Date Type Department Care Team (Latest Contact Info) Description 09/13/2002 Outpatient Historical [facility] Family Medicine [place] [address] [facility] [address] [place] [address] Manuelito Williamson DO NO ADDRESS ON FILE CHEST PAIN NEC (Primary Dx); PANIC DISORDER; SLEEP DISTURBANCE NOS Social History Tobacco Use Types Packs/Day Years Used Date Smoking Tobacco: Never Assessed Comments Unknown Sex and Gender Information Value Date Recorded Sex Assigned at Not on file Legal Sex Female 5:20 AM VIRTUALIZATION ARCHITECT Gender Identity Not on file Sexual Orientation Not on file documented as of this encounter Plan of Treatment Not on file documented as of this encounter Visit Diagnoses Diagnosis Other chest pain- Primary Panic disorder without agoraphobia Sleep disturbance, unspecified documented in this encounter Care Teams Steel Erecting Pusher Relationship Specialty Start Date End Date Nona Davis MD [address] [place] [phone] PCP - General Family Practice 02/20/21 documented as of this encounter
--- OUTSIDE RECORDS SUMMARY | 2025-09-15 10:07 | XMS_ITS | Clinical Summary ---
Author Organization [facility] Address [address] [facility] [place] [address] Care Team Providers Care Air Traffic Control Specialist Name Role Phone Nona Davis MD Primary Care Provider [phone] Allergies Active Allergy Reactions Criticality Noted Date Comments Beta-Blockers (Beta-Adrenergic Blocking Agts) Shortness of Breath/Wheezing High 09/18/2018 Medications predniSONE (DELTASONE) 5 mg tablet TAKE TWO TABLETS BY MOUTH DAILY FOR FOURTEEN DAYS THEN ONE TABLET DAILY FOR FOURTEEN DAYS 0 9 Active clobetasoL (TEMOVATE) 0.05 % Ointment APPLY A THIN LAYER TO PSORIASIS TWICE DAILY 60 Gram 1 0 Active triamcinolone acetonide (KENALOG) 0.025 % Cream APPLY TO RASH ON FACE TWICE DAILY 80 Gram 0 Active ondansetron (Zofran ODT) 4 mg Tablet, Rapid Dissolve Place 1 Tablet (4 mg) under tongue every 8 hours as needed for Nausea. 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 Panic attacks 09/18/2018 Anxiety 09/18/2018 Resolved Problems Problem Noted Date Diagnosed Date Resolved Date Seizure-like activity 09/24/20182020 Family History Medical History Relation Name Comments Heart Disease Father Kidney Disease Father Unknown Maternal Grandfather Diabetes Maternal Grandmother Headaches Mother Hypertension Mother Other Mother mva Stroke Mother Unknown Paternal Grandfather Relation Name Status Comments Daughter Alive Father Maternal Grandfather Maternal Grandmother Mother Paternal Grandfather Social History Tobacco Use Types Packs/Day Years Used Date Smoking Tobacco: Some Days Cigarettes 0.5 23 Smokeless Tobacco: Never Tobacco Cessation:Ready to Q uit: Yes; Counseling Given: Yes Alcohol Use Standard Drinks/Week Comments No 0 (1 standard drink = 0.6 oz pur e alcohol) Comments No Sex and Gender Information Value Date Recorded Sex Assigned at Not on file Legal Sex Female 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 FIRE 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 Gender Identity Not on file Sexual Orientation Not on file Occupation Industry Job Start Date Job End Date Not on file Not on file Not on file Not on file Last Filed Vital Signs Vital Sign Reading Time Taken Comments Blood Pressure 156/98 05/24/2021 12:40 PM CDT Pulse 96 05/24/2021 12:40 PM CDT Temperature 36.1 C (97 F) 05/24/2021 11:39 AM CDT Respiratory Rate 18 05/24/2021 12:40 PM CDT Oxygen Saturation 96% 05/24/2021 12:40 PM CDT Inhaled Oxygen Concentration - - Weight 95.5 kg (210 lb 9.6 oz) 05/24/2021 7:51 A M CDT Height 154.9 cm (5' 1 ) 05/24/2021 7:51 AM CDT Body Mass Index 39.79 05/24/2021 7:51 AM CDT Plan of Treatment Health Maintenance Due Date Last Done Comments DTAP/TDAP/TD VACCINES (1 - Tdap) 2002 HEPATITIS B VACCINES (1 of 3 - 19+ 3-dose series) 11/01 HPV/Cotest (21-29) 2004 HPV VACCINES (1 - 3-dose SCDM series) 2010 CERVICAL CANCER SCREENING 2013 HPV/Cotest (30-65) 2013 PAP SMEAR 2013 Preventative Visit-Managed Medicaid 10/31/202210/30 BREAST CANCER SCREENING 2023 Pre-Diabetes and Diabetes Screening 02/21/202402/20 INFLUENZA VACCINE (#1) 2025 Medical Devices Implanted Type Area Booking Clerk Device Identifier Shelf Expiration Date Model / Serial / Lot Mesh Ventralight St 4x6in [id number] - Sna Implanted:Qty: 1 on 05/24/2021 by Jg Negron MD at [facility] Mesh N/A: Abdomen CR [employer] 12/28/2022 [id number] / NA / [id number] Procedures Procedure Name Priority Date/Time Associated Diagnosis Comments HEMOGLOBIN A1C Routine 02/20/2021 10:34 AM CDT Pre-diabetes from Last 3 Months or Most Recently Relevant to Health Maintenance Results * HEMOGLOBIN A1C (02/20/2021 10:34 AM CDT) HEMOGLOBIN A1C 5.4 See Comment % 02/21/2021 8:12 AM CDT [facility] EST. AVG GLUCOSE, A1C 108 mg/dL 02/21/2021 8:12 AM CDT [facility] Blood Venipuncture / Unknown 02/20/2021 10:34 AM CDT 02/20/2021 6:36 PM CDT Narrative [facility] - 02/21/2021 8:12 AM CDT HGB A1C INTERPRETATION NORMAL: <5.7% PRE-DIABETES: 5.7 - 6.4% DIABETES: 6.5% OR GREATER Falsely low A1C measurements can occur when: 1. Anemia and/or hemolytic anemia is present. 2. Hemoglobin variants present. 3. Renal failure. 4. Transfusion of blood product in the last 120 days. We recommend ordering a fructosamine test([id number]) to more accurately assess glycemic status if any of the above conditions are present. us Nona Davis MD CHEMISTRY ORDERABLES Final Resul t [facility] CLIA# [id number] [address] [place] [address] from Last 3 Months or Most Recently Relevant to Health Maintenance Insurance [facility] [place] Advance Directives For more information, please contact: [phone] * Full Code (Latest Code Status on File) Date Activated Date Inactivated Comments 05/24/2021 8:04 AM 05/24/2021 2:53 PM Care Teams Air Traffic Control Specialist Relationship Specialty Start Date End Date Nona Davis MD [address] [place] [address] PCP - General Family Practice 02/20/21
--- OUTSIDE RECORDS SUMMARY | 2025-09-15 10:07 | XMS_ITS | Encounter Summary ---
Author Organization [facility] Address [address] [place] [address] Care Team Providers Care Lacing Cutter Name Role Phone Nona Davis MD Primary Care Provider [phone] Encounter Details Date Type Department Care Team (Latest Contact Info) Description 06/09/2002 Outpatient Historical [facility] Family Medicine- [place] [address] [place] [address] Bruce Sandoval MD [address] [facility] [address] [place] [address] ABDOMINAL PAIN EPIGASTRIC (Primary Dx); NAUSEA ALONE Social History Tobacco Use Types Packs/Day Years Used Date Smoking Tobacco: Never Assessed Comments Unknown Sex and Gender Information Value Date Recorded Sex Assigned at Not on file Legal Sex Female 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
--- OUTSIDE RECORDS SUMMARY | 2025-09-15 10:07 | XMS_ITS | Encounter Summary ---
Author Organization [facility] Address [address] [place] [address] Care Team Providers Care Journey Lineman Name Role Phone Nona Davis MD Primary Care Provider [phone] Encounter Details Date Type Department Care Team (Latest Contact Info) Description 05/10/2002 Outpatient Historical [facility] [address] [place] [address] Bruce Sandoval MD [address] [address] URIN TRACT INFECTION NOS (Primary Dx) Social History Tobacco Use Types Packs/Day Years Used Date Smoking Tobacco: Never Assessed Comments Unknown Sex and Gender Information Value Date Recorded Sex Assigned at Not on file Legal Sex Female 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
--- OUTSIDE RECORDS SUMMARY | 2025-09-15 10:07 | XMS_ITS | Encounter Summary ---
Author Organization [facility] Address [address] [place] [address] Care Team Providers Care Blind Eyeletter Name Role Phone Nona Davis MD Primary Care Provider [phone] Encounter Details Date Type Department Care Team (Latest Contact Info) Description 01/11/2002 Outpatient Historical [facility] [address] [place] [address] Bruce Sandoval MD [address] [address] ACUTE MAXILLARY SINUSITIS (Primary Dx); URIN TRACT INFECTION NOS Social History Tobacco Use Types Packs/Day Years Used Date Smoking Tobacco: Never Assessed Comments Unknown Sex and Gender Information Value Date Recorded Sex Assigned at Not on file Legal Sex Female 5: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
--- OUTSIDE RECORDS SUMMARY | 2025-09-15 10:07 | XMS_ITS | Encounter Summary ---
Author Organization [facility] Address [address] [place] [address] Care Team Providers Care Marble Carver Name Role Phone Nona Davis MD Primary Care Provider [phone] Encounter Details Date Type Department Care Team (Latest Contact Info) Description 04/21/2002 Outpatient Historical [facility] [address] [place] [address] Manuelito Williamson, NO ADDRESS ON FILE Sprain of neck (Primary Dx); SPASM OF MUSCLE Social History Tobacco Use Types Packs/Day Years Used Date Smoking Tobacco: Never Assessed Comments Unknown Sex and Gender Information Value Date Recorded Sex Assigned at Not on file Legal Sex Female 5: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
--- OUTSIDE RECORDS SUMMARY | 2025-09-15 10:07 | XMS_ITS | Encounter Summary ---
Author Organization [facility] Address [address] [place] [address] Care Team Providers Care Meat Loiner Name Role Phone Nona Davis MD Primary Care Provider [phone] Encounter Details Date Type Department Care Team (Latest Contact Info) Description 05/04/2002 Outpatient Historical [facility] Family Medicine [place] [address] [facility] [address] [place] [address] Manuelito Williamson DO NO ADDRESS ON FILE NAUSEA ALONE (Primary Dx); Scanty menstruation Social History Tobacco Use Types Packs/Day Years Used Date Smoking Tobacco: Never Assessed Comments Unknown Sex and Gender Information Value Date Recorded Sex Assigned at Not on file Legal Sex Female 5:20 AM BASEBALL WINDER Gender Identity Not on file Sexual Orientation Not on file documented as of this encounter Plan of Treatment Not on file documented as of this encounter Visit Diagnoses Diagnosis Nausea alone- Primary Scanty menstruation Scanty or infrequent menstruation documented in this encounter Care Teams Meat Loiner Relationship Specialty Start Date End Date Nona Davis MD [address] [place] [id number] PCP - General Family Practice 02/20/21 documented as of this encounter
--- OUTSIDE RECORDS SUMMARY | 2025-09-15 10:07 | XMS_ITS | Clinical Summary ---
Author Organization [facility] Address [address] [place] [address] Care Team Providers Care Grout Worker Name Role Phone John West MD Primary Care Provider [phone] Allergies Active Allergy Reactions Criticality Noted Date Comments Beta-Blockers (Beta-Adrenergic Blocking Agts) Shortness of Breath/Wheezing High 09/18/2018 Medications ondansetron (ZOFRAN ODT) 4 mg Tablet, Rapid Dissolve Take 1 Tablet (4 mg) by mouth every 8 hours as needed for Nausea/Emesis. Dissolve tablet on top of tongue, then swallow with saliva. 12 Tablet 2 Active predniSONE 10 mg Tablets, Dose Pack Take 10 mg by mouth 2 times daily. Active ixekizumab (TALTZ AUTOINJECTOR SUBCUT) Inject by subcutaneous injection. Active diltiaZEM (CARDIZEM CD) 120 mg Controlled Delivery 24 hour capsuleIndicatio ns:HTN (hypertension), benign Take 1 Capsule (120 mg) by mouth daily. 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 Anxiety 09/18/2018 Hypertension 09/18/2018 Optic neuritis 09/18/2018 Lupus 09/18/2018 Migraines 09/18/2018 Psoriasis 09/18/2018 Panic attacks 09/18/2018 Resolved Problems Problem Noted Date Diagnosed Date Resolved Date Seizure-like activity 09/24/20182020 Family History Medical History Relation Name Comments Asthma Brother 1 Jose Rafael Blanca 2020 respitory condition Respiratory Disease Brother 1 Jose Rafael Blanca No Known Problems Brother 2 Luis Blanca No Known Problems Daughter Heart Disease Father Bonilla blanca Kidney Disease Father Bonilla blanca Heart Failure Maternal Grandfather Diabetes Maternal Grandmother Melva jose Lung Cancer Maternal Grandmother Melva jose Other Maternal Grandmother Melva jose Lung ca ncer Asthma Mother Edilma Jose Headaches Mother Edilma Jose Hypertension Mother Edilma Jose Other Mother Edilma Jose mva Ovarian Cancer Mother Edilma Jose Stroke Mother Edilma Jose Kidney Disease Paternal Grandfather Unknown Paternal Grandfather Heart Failure Paternal Grandmother Relation Name Status Comments Brother 1 Jose Rafael Blanca Brother 2 Luis Blanca Alive Daughter Alive Father Bonilla blanca Maternal Grandfather Maternal Grandmother Melva jose Mother Edilma Jose Paternal Grandfather Paternal Grandmother Social History Tobacco Use Types Packs/Day Years Used Date Smoking Tobacco: Every Day Cigarettes 0.3 20 Smokeless Tobacco: Never Tobacco Cessation:Ready to Q uit: Not Asked; Counseling Given: Not Answered Comments:I stuggle with this addiction and have attempted to quit many times Alcohol Use Standard Drinks/Week Comments Never 0 (1 standard drink = 0.6 oz pur e alcohol) Comments No Sex and Gender Information Value Date Recorded Sex Assigned at Not on file Legal Sex Female 3:17 AM SPANISH MEDICAL INTERPRETER Gender Identity Not on file Sexual Orientation Not on file Last Filed Vital Signs Vital Sign Reading Time Taken Comments Blood Pressure 140/90 09/15/2023 2:33 PM CDT Pulse 102 09/15/2023 2:13 PM CDT Temperature 37.1 C (98.8 F) 08/23/2023 9:30 AM CDT Respiratory Rate 16 08/23/2023 9:30 AM CDT Oxygen Saturation 97% 08/23/2023 9:30 AM CDT Inhaled Oxygen Concentration - - Weight 81.6 kg (180 lb) 09/15/2023 2:13 PM CDT Height 152.4 cm (5') 09/15/2023 2:13 PM CDT Body Mass Index 35.15 09/15/2023 2:13 PM CDT Plan of Treatment Health Maintenance Due Date Last Done Comments DTAP/TDAP/TD VACCINES (1 - Tdap) 2002 HEPATITIS B VACCINES (1 of 3 - 19+ 3-dose series) 2002 HPV VACCINES (1 - 3-dose SCDM series) 2010 Preventative Visit-Managed Medicaid 10/31/202210/30 BREAST CANCER SCREENING 2023 PAP SMEAR 10/30/2024 10/30/2021 INFLUENZA VACCINE (#1) 2025 Pre-Diabetes and Diabetes Screening 12/13/2025 12/13/2022, 08/14/2021, 02/20/2021 CERVICAL CANCER SCREENING 10/30/2026 HPV/Cotest (21-29) 10/30/2026 10/30/2021 HPV/Cotest (30-65) 10/30/2026 10/30/2021 Medical Devices Implanted Type Area Heat Treat Operator Device Identifier Shelf Expiration Date Model / Serial / Lot Mesh Ventralight St 4x6in [id number] - Sna Implanted:Qty: 1 on 05/24/2021 by Jg Negron MD Mesh N/A: Abdomen CR BARD- [employer] 12/28/2022 [id number] / NA / [id number] Procedures Procedure Name Priority Date/Time Associated Diagnosis Comments HEMOGLOBIN A1C Routine 12/13/2022 10:42 AM SPANISH MEDICAL INTERPRETER Hyperglycemia CERV/VAG CYTO SCREEN PAP W/HPV Routine 10/30/2021 12:32 PM SPANISH MEDICAL INTERPRETER Encounter for gynecological examination with abnormal finding Cervical cancer screening from Last 3 Months or Most Recently Relevant to Health Maintenance Results * HEMOGLOBIN A1C (12/13/2022 10:42 AM SPANISH MEDICAL INTERPRETER) HEMOGLOBIN A1C 5.2 <5.7 % of total Hgb [facility] Comment: For the purpose of screening for the presence of diabetes: <5.7% Consistent with the absence of diabetes 5.7-6.4% Consistent with increased risk for diabetes (prediabetes) > or =6.5% Consistent with diabetes This assay result is consistent with a decreased risk of diabetes. Currently, no consensus exists regarding use of hemoglobin A1c for diagnosis of diabetes in children. According to [place] Diabetes Association (ADA) guidelines, hemoglobin A1c <7.0% represents optimal control in non- diabetic patients. Different metrics may apply to specific patient populations. Standards of Medical Care in Diabetes(ADA). ESTIMATED AVERAGE GLUCOSE (MG/DL) 103 mg/dL [facility] ESTIMATED AVERAGE GLUCOSE (MMOL/L) 5.7 mmol/L [facility] Comment: Test Performed at: [facility] [address] [place] [address] Manny Chiu D.O., MPH Blood 12/13/2022 10:4 2 AM SPANISH MEDICAL INTERPRETER 12/13/2022 10:25 PM SPANISH MEDICAL INTERPRETER John West MD CHEMISTRY ORDERABLES Final Re sult [facility] [phone] [facility] [address] [place] [address] * CERV/VAG CYTO SCREEN PAP W/HPV (10/30/2021 12:32 PM SPANISH MEDICAL INTERPRETER) CLINICAL INFORMATION [facility] Comment:Information not prov ided LAST MENSTRUAL PERIOD [facility] Comment:INFORMATION NOT PROV IDED PREV PAP: [facility] Comment:INFORMATION NOT PROV IDED PREV BX: [facility] Comment:INFORMATION NOT PROV IDED SOURCE [facility] Comment:Endocervix ADEQUACY: [facility] Comment: Satisfactory for evaluation. Endocervical/transformation zone component present. Age and/or menstrual status not provided PAP INTERP [facility] Comment:Negative for intraep ithelial lesion or malignancy. COMMENT (PAP TEST) [facility] Comment: This Pap test has been evaluated with computer assisted technology. ULTRASOUND SUPERVISOR: [facility] Comment: MVB, CT(ASCP) CT screening location: [place] [address] [place] [address] SEE NOTE [facility] Comment: EXPLANATORY NOTE: The Pap is a screening test for cervical cancer. It is not a diagnostic test and is subject to false negative and false positive results. It is most reliable when a satisfactory sample, regularly obtained, is submitted with relevant clinical findings and history, and when the Pap result is evaluated along with historic and current clinical information. HPV E6/E7 Not Detected Not Detected [facility] Comment: Methodology: Esthetic Dermatologist-Mediated Amplification This assay detects E6/E7 viral messenger RNA (mRNA) from 14 high-risk HPV types (16,18,31,33,35,39,45,51,52,56,58,59,66,68). The analytical performance characteristics of this assay have been determined by [facility]. The modifications have not been cleared or approved by the FDA. This assay has been validated pursuant to the CLIA regulations and is used for clinical purposes. For additional information, please refer to http://education.GiftLauncher/faq/CWC441w7 (This link if provided for information/ educational purposes only.) Test Performed at: [facility] [address] [place] [address] Manny Chiu D.O., MPH SL Genital SWAB OF ENDOCERVIX / Unknown 10/30/2021 12:32 PM SPANISH MEDICAL INTERPRETER 11/01/2021 6:00 AM SPANISH MEDICAL INTERPRETER Kelly Raya CNM PATHOLOGY/CYTOLOGY ORDERABLES F inal Result [facility] [address] [place] [address] from Last 3 Months or Most Recently Relevant to Health Maintenance Insurance [place] Care Teams Grout Worker Relationship Specialty Start Date End Date John West MD [address] [place] [address] PCP - General Family Practice 12/13/22
--- OUTSIDE RECORDS SUMMARY | 2025-09-15 10:07 | XMS_ITS | Encounter Summary ---
Author Organization [facility] Address [address] [place] [address] Care Team Providers Care Biomass Technician Name Role Phone John West MD Primary Care Provider [phone] Encounter Details Date Type Department Care Team (Late st Contact Info) Description 06/05/2022 Lab Requisition [facility] Laboratory Services [address] [place] [address] [place] [address] Dave Cheatham MD [address] [facility] [address] [place] [address] Social History Tobacco Use Types Packs/Day Years Used Date Smoking Tobacco: Some Days Cigarettes Smokeless Tobacco: Never Alcohol Use Standard Drinks/Week Comments No 0 (1 standard drink = 0.6 oz pur e alcohol) Comments No Sex and Gender Information Value Date Recorded Sex Assigned at Not on file Legal Sex Female 3:17 AM GROUND OPERATIONS SUPERINTENDENT Gender Identity Not on file Sexual Orientation Not on file COVID-19 Exposure Response Date Recorded In the last 10 days, have yo u been in contact with someone who was confirmed or suspected to have Coronavirus/COVID-19? No / Unsure 06/05/2022 6:15 PM CDT documented as of this encounter Plan of Treatment Not on file documented as of this encounter Procedures Procedure Name Priority Date/Time Associated Diagnosis Comments EXTRA TUBE (GREEN) Routine 06/05/2022 7: 42 PM CDT EXTRA TUBE (GREEN) Routine 06/05/2022 7: 42 PM CDT LACTIC ACID Stat 06/05/2022 7:42 PM CDT documented in this encounter Results * EXTRA TUBE (GREEN) (06/05/2022 7:42 PM CDT) Blood Collection / Unknown 06/05/2022 7:42 PM CDT 06/05/2022 8:18 PM CDT us Dave Cheatham MD CHEMISTRY ORDERABLES F inal Result [facility] CLIA # [id number] [address] [place] [address] * EXTRA TUBE (GREEN) (06/05/2022 7:42 PM CDT) Blood Collection / Unknown 06/05/2022 7:42 PM CDT 06/05/2022 8:18 PM CDT us Dave Cheatham MD CHEMISTRY ORDERABLES F inal Result Performing Organization Address [facility] Co de Phone Number [facility] CLIA # [id number] [address] [place] [address] * LACTIC ACID (06/05/2022 7:42 PM CDT) LACTIC ACID 0.9 <=2.0 mmol/L 06/05/2022 8:45 PM CDT [facility] Blood Collection / Unknown 06/05/2022 7:42 PM CDT 06/05/2022 8:18 PM CDT us Dave Cheatham MD CHEMISTRY ORDERABLES F inal Result Performing Organization Address City/[facility]/ZIP Co de Phone Number [facility] CLIA # [id number] [address] [facility] [place] [address] documented in this encounter Visit Diagnoses Not on filedocumented in this encounter Care Teams Biomass Technician Relationship Specialty Start Date End Date John West MD [address] [place] [address] PCP - General Family Practice 12/13/22 documented as of this encounter
--- OUTSIDE RECORDS SUMMARY | 2025-09-15 10:07 | XMS_ITS | Encounter Summary ---
Author Organization [facility] Address [address] [place] [address] Care Team Providers Care Rv Parts And Service Director Name Role Phone Nona Davis MD Primary Care Provider Encounter Details Date Type Department Care Team (Latest Contact Info) Description 11/05/2001 Outpatient Historical [facility] Family Medicine [place] [address] [facility] [address] [place] [address] Lissa Gross MD NO ADDRESS ON FILE ACUTE SINUSITIS NOS (Primary Dx); ACUTE BRONCHITIS; NAUSEA WITH VOMITING Social History Tobacco Use Types Packs/Day Years Used Date Smoking Tobacco: Never Assessed Comments Unknown Sex and Gender Information Value Date Recorded Sex Assigned at Not on file Legal Sex Female 5:20 AM MECHANIC/WELDER Gender Identity Not on file Sexual Orientation Not on file documented as of this encounter Plan of Treatment Not on file documented as of this encounter Visit Diagnoses Diagnosis Acute sinusitis, unspecified- Primary Acute bronchitis Nausea with vomiting documented in this encounter Care Teams Rv Parts And Service Director Relationship Specialty Start Date End Date Nona Davis MD [address] [place] [address] PCP - General Family Practice 02/20/21 documented as of this encounter
--- OUTSIDE RECORDS SUMMARY | 2025-09-15 10:07 | XMS_ITS | Encounter Summary ---
Author Organization [facility] Address [address] [place] [address] Care Team Providers Care Mold Bunch Trimmer Name Role Phone John West MD Primary Care Provider [phone] Encounter Details Date Type Department Care Team (Late st Contact Info) Description 02/14/2022 Lab Requisition [facility] Laboratory Services [address] [place] [address] [place] [address] Be Meng DO NO ADDRESS ON FILE Social History Tobacco Use Types Packs/Day Years Used Date Smoking Tobacco: Some Days Cigarettes Smokeless Tobacco: Never Alcohol Use Standard Drinks/Week Comments No 0 (1 standard drink = 0.6 oz pur e alcohol) Comments No Sex and Gender Information Value Date Recorded Sex Assigned at Not on file Legal Sex Female 3:17 AM AUTOMOTIVE ENGINEER Gender Identity Not on file Sexual Orientation Not on file COVID-19 Exposure Response Date Recorded In the last month, have you been in contact with someone who was confirmed or suspected to have Coronavirus / COVID-19? No / Unsure 02/14/2022 5:42 PM CDT documented as of this encounter Plan of Treatment Not on file documented as of this encounter Procedures Procedure Name Priority Date/Time Associated Diagnosis Comments D-DIMER Stat 02/14/2022 6:26 PM CDT documented in this encounter Results * D-DIMER (02/14/2022 6:26 PM CDT) D-DIMER QUANT 0.35 0.00 - 0.50 ug/mL FEU 02/14/2022 7:20 PM CDT [facility] Blood Collection / Unknown 02/14/2022 6:26 PM CDT 02/14/2022 6:46 PM CDT Narrative [facility] - 02/14/2022 7:20 PM CDT Various clinical studies utilizing this method have shown that a result of < 0.5 ug/ml FEU excludes deep vein thrombosis and pulmonary embolism with high sensitivity when used in conjunction with a non-high clinical pre-test probability assessment. us Be Meng DO HEMATOLOGY ORDERABLES Final Resu lt [facility] CLIA # [id number] [address] [place] [address] documented in this encounter Visit Diagnoses Not on filedocumented in this encounter Care Teams Mold Bunch Trimmer Relationship Specialty Start Date End Date John West MD [address] [place] [address] PCP - General Family Practice 12/13/22 documented as of this encounter
--- OUTSIDE RECORDS SUMMARY | 2025-09-15 10:07 | XMS_ITS | Encounter Summary ---
Author Organization [facility] Address [address] [place] [address] Care Team Providers Care Geospatial Image Analyst Name Role Phone Nona Davis MD Primary Care Provider Reason for Referral * MRI (Routine) - Closed Specialty Diagnoses / Procedures Referred By Catarina gentile Referred To Contact Diagnoses LOC (loss of consciousness) Seizure-like activity (CMS/HCC) Procedures MRI BRAIN WO CONTRAST MRI BRAIN W WO CONTRAST Erich Nathan MD [facility] Pre-Registration [place] CALL TO MAKE APPOINTMENT ONLY [address] [place] [address] Phone: tel: fax: Referral ID Status Reason Start Date Expiration Date V isits Requested Visits Authorized [id number] Closed F [facility] TO SCHEDULE (SGF) 10/30/2018 11/29/2018 1 1 Encounter Details Date Type Department Care Team (Late st Contact Info) Description 10/30/2018 Ancillary Orders [facility] Neurology- [place] [address] [place] [address] Erich Nathan MD NO ADDRESS ON FILE LOC (loss of consciousness) (CMS/HCC); Seizure-like activity (CMS/HCC) Social History Tobacco Use Types Packs/Day Years Used Date Smoking Tobacco: Former Cigarettes Q uit: 2016 Smokeless Tobacco: Never Alcohol Use Standard Drinks/Week Comments No 0 (1 standard drink = 0.6 oz pur e alcohol) Comments No Sex and Gender Information Value Date Recorded Sex Assigned at Not on file Legal Sex Female 5:20 AM LIEUTENANT FIRE FIGHTER Gender Identity Not on file Sexual Orientation Not on file documented as of this encounter Plan of Treatment Not on file documented as of this encounter Results * MRI BRAIN WO CONTRAST (10/30/2018 5:19 PM LIEUTENANT FIRE FIGHTER) Anatomical Region Laterality Modality Head Magnetic Resonan ce 10/30/2018 5:26 PM LIEUTENANT FIRE FIGHTER Impressions 11/02/2018 9:33 AM LIEUTENANT FIRE FIGHTER IMPRESSION: Please see below. Exam: MRI BRAIN WO CONTRAST Date/Time of Exam: 10/30/2018 5:19 PM Reason For Exam: Altered level of consciousness (LOC), unexplained; . Diagnosis: LOC (loss of consciousness); Seizure-like activity. Technique: MRI of the brain was performed without the administration of intravenous contrast. Findings: No migrational abnormality. The hippocampi are symmetric. No focal encephalomalacia. No encephalocele. Nonspecific focus of subcortical white matter T2 hyperintensity along the right superior frontal gyrus. No acute infarction, hemorrhage or extra axial collection. Ventricles and CSF spaces are normal. No acute osseous abnormality. The paranasal sinuses and mastoid air cells are clear. The orbits are intact. IMPRESSION: Single nonspecific focus of subcortical white matter T2 hyperintensity along the right frontal gyrus. No definitive epileptogenic lesion. Narrative Procedure Note Yosi Wood, DO - 11/02/2018 IMPRESSION: Please see below. Exam: MRI BRAIN WO CONTRAST Date/Time of Exam: 10/30/2018 5:19 PM Reason For Exam: Altered level of consciousness (LOC), unexplained; . Diagnosis: LOC (loss of consciousness); Seizure-like activity. Technique: MRI of the brain was performed without the administration of intravenous contrast. Findings: No migrational abnormality. The hippocampi are symmetric. No focal encephalomalacia. No encephalocele. Nonspecific focus of subcortical white matter T2 hyperintensity along the right superior frontal gyrus. No acute infarction, hemorrhage or extra axial collection. Ventricles and CSF spaces are normal. No acute osseous abnormality. The paranasal sinuses and mastoid air cells are clear. The orbits are intact. IMPRESSION: Single nonspecific focus of subcortical white matter T2 hyperintensity along the right frontal gyrus. No definitive epileptogenic lesion. Erich Nathan MD MR ORDERABLES Final Result documented in this encounter Visit Diagnoses Diagnosis LOC (loss of consciousness) Other alteration of consciousness Seizure-like activity (CMS/HCC) Other convulsions LOC (loss of consciousness) Other alteration of consciousness Seizure-like activity (CMS/HCC) Other convulsions documented in this encounter Care Teams Geospatial Image Analyst Relationship Specialty Start Date End Date Nona Davis MD [address] [place] [address] PCP - General Family Practice 02/20/21 documented as of this encounter
[2025-09-15 10:10] LABS: Alanine Aminotransferase 18 U/L (0-33); Albumin Level 4.3 g/dL (3.5-5.2); Alkaline Phosphatase 82 U/L (35-105); Anion Gap 18.1 (5-19); Aspartate Amino Transferase 21 U/L (0-32); Blood Urea Nitrogen 7 mg/dL (6-20); Calcium 9.9 mg/dL (8.5-10.5); Carbon Dioxide 25 mmol/L (22-29); Chloride 100 mmol/L (98-107); Creatinine Clr Calc Pharmacy 119.8643; Globulin 3.4 g/dL (1.3-4.6); Glucose 103 mg/dL (65-115); Lipase 14 U/L (13-60); Osmolality Calculated 286 mOsm/kg (285-295); Potassium 4.1 mmol/L (3.5-5.1); Sodium 139 mmol/L (136-145); Total Protein 7.7 g/dL (6.6-8.7)
[2025-09-15] MEDS: pantoprazole 40 mg SDV 80 MG IVP (10:26)
[2025-09-15 11:27] VITALS: BP 185/117; PULSE 93; TEMP 37.1; O2SAT 95
--- NOTE | 2025-09-15 11:30 | US_ITS ---
WS: [id number] RIGHT UPPER QUADRANT ULTRASOUND HISTORY: Epigastric right upper quadrant abdominal pain COMPARISON: None available. Liver: 15.7 cm in length. Normal size liver and echogenicity. No bile duct dilatation or mass. Portal Vein: Normal hepatopetal flow with monophasic waveform. Gallbladder: Normally distended gallbladder with numerous stones. No pericholecystic fluid or gallbladder wall thickening. CBD: 0.4 cm Pancreas: Completely obscured by body habitus. Right kidney: 11.2 cm in length. Normal size and echogenicity. No hydronephrosis or mass. Aorta and IVC: Unremarkable abdominal aorta and IVC. No ascites. US/US gall bladder 11309 IMPRESSION: 1. Cholelithiasis. Numerous stones in the gallbladder but no evidence for acut e cholecystitis at this time. 2. Completely obscured pancreas. 3. Normal size common bile duct.
--- NOTE | 2025-09-15 11:30 | CT_ITS ---
WS: [id number] CT ABDOMEN AND PELVIS NONCONTRAST HISTORY: Abdominal pain TECHNIQUE: Imaging performed through the abdomen and pelvis. Coronal and sagittal reformats are submitted. All CT scans at [facility] use at least one of these dose optimization techniques: automated exposure control; mA and/or kV adjustment per patient size (includes targeted exams where dose is matched to clinical indication); or iterative reconstruction. DLP: 983.45 mGy.cm COMPARISON: 08/03/2009 Lower thorax: Subsegmental atelectasis at the lung bases. Heart size is normal. Liver: Normal size liver with mild diffuse hepatic steatosis. Gallbladder: Normal gallbladder. No pericholecystic fluid or cholelithiasis. No gallbladder wall thickening. Pancreas: Normal size and attenuation. Normal pancreatic duct. No pancreatitis or mass. Spleen: Normal. Adrenal glands: Normal. No mass. Right kidney: Normal size kidney with no mass or hydronephrosis. Left kidney: Normal size kidney with no mass or hydronephrosis. Aorta: Normal abdominal aorta, no aneurysm or atherosclerosis. Numerous small central mesenteric and RIGHT lower quadrant lymph nodes. Lymph nodes are mildly hyperemic. The largest is round in the RIGHT lower quadrant measuring 12 mm. GI tract: Prior appendectomy. Inflammation in the RIGHT lower quadrant predominately centered around the terminal ileum into the cecum. There is mild submucosal edema throughout the terminal ileum. Area of involvement measures approximately 12 cm in length. There is no abscess. No free fluid. No GI tract obstruction. Numerous diverticula in the distal colon. No evidence for acute diverticulitis. Abdominal wall: Negative. No hernia. Pelvis: Well-distended urinary bladder. Uterus is midline and normal. No free fluid. Osseous structures: Facet joint arthritis at L5-S1 with mild foraminal narrowing. CT/CT abdomen pelvis wo con [id number] IMPRESSION: 1. Acute terminal ileitis. There is significant inflammation surrounding the t erminal ileum with extension to the cecum. Associated hyperemic lymphadenopathy . Consider inflammatory bowel disease such as Crohn's or ulcerative colitis, in fectious etiologies or noninfectious etiologies such as medication related (NSA IDs) or autoimmune disorder. 2. Prior appendectomy. 3. No renal obstruction. 4. Hepatic steatosis. 5. Additional distal colon diverticulosis without acute diverticulitis.
[2025-09-15 14:07] VITALS: BP 108/78; PULSE 78; O2SAT 98
== END 2025-09-15 14:08 | disposition home or self-care (01) ==
PROVIDERS: Emergency Provider Family Medicine
DX: K80.20 Calculus of gallbladder without cholecystitis without obstruction (principal); K50.00 Crohn's disease of small intestine without complications; F17.210 Nicotine dependence, cigarettes, uncomplicated
CPT/HCPCS: 36415; 74176; 76705; 80053; 81001; 83690; 85025; 96374; 96375; 99285; J2270; J2405; J2470; J7030